=== PATIENT | female | born 1975 | race Caucasian/White ===

== ENCOUNTER 2021-06-29 11:32 | Inpatient (IN) | payer BC ==
[2021-06-29 15:10] LABS: #Basophils 0.1 10x3/uL (0.0-0.2); #Eosinphils 0.1 10x3/uL (0.0-0.5); #Monocytes 0.5 10x3/uL (0.0-1.1); #Neutrophils 4.6 10x3/uL (1.5-8.4); %Basophils 0.7 % (0.0-2.0); %Eosinophils 1.6 % (0.0-6.0); %Lymphocytes 29.6 % (18.0-47.0); %Monocytes 6.4 % (0.0-10.0); %Neutrophils 61.4 % (40.0-75.0); Hemoglobin 14.5 g/dL (12.0-15.5); Mean Corpuscular HGB CONC 35.2 g/dL (32.0-36.0); Mean Corpuscular Hemoglobin 31.4 pg (27.0-33.0); Mean Corpuscular Volume 89.2 fl (81.6-98.3); Mean Platelet Volume 9.5 fl (7.4-10.4); Platelet Count 364 10x3/uL (150-450); Red Blood Cell (RBC) Count 4.62 10x6/uL (3.90-5.03); White Blood Cell (WBC) Count 7.5 10x3/uL (3.5-10.5)
[2021-06-29 15:25] LABS: ALT (SGPT) 68 U/L (8-55); AST (SGOT) 49 U/L (5-34); Albumin 4.9 g/dL (3.5-5.0); Alkaline Phosphatase 47 U/L (40-110); Anion Gap 17 mmol/L (10-20); BUN (Urea Nitrogen) 16 mg/dL (7.0-18.7); Bilirubin, Total 0.9 mg/dL (0.2-1.2); Calc. Creatinine Clearance 0 mL/min (70-130); Calcium 10.6 mg/dL (7.8-10.44); Carbon Dioxide 24 mmol/L (22-29); Chloride 102 mmol/L (98-107); Globulin 3.6 g/dL (2.4-3.5); Glucose 90 mg/dL (70-105); Potassium 3.3 mmol/L (3.5-5.1); Protein, Total 8.5 g/dL (6.0-8.3); Sodium 140 mmol/L (136-145)
[2021-06-29] MEDS ORDERED: Acetaminophen 325 MG TAB PO PRN (20:33)
[2021-06-29] MEDS ORDERED: Zolpidem Tartrate 5 MG TAB PO PRN (20:33)
[2021-06-29] MEDS ORDERED: Calcium Carbonate 500 MG ChewTAB PO PRN (20:33)
[2021-06-29] MEDS ORDERED: HYDROcodone/Acetaminophen 5/325 mg Tablet PO PRN ×2 (20:33)
[2021-06-29] MEDS ORDERED: Senokot S 8.6-50 MG TAB PO PRN (20:33)
[2021-06-29] MEDS ORDERED: Guaifenesin DM 100-10/5 ML UDCUP PO PRN (20:33)
[2021-06-29] MEDS ORDERED: Ondansetron PF 4 MG/2 ML Vial IVP PRN (20:33)
[2021-06-29] MEDS ORDERED: Sodium Chloride 0.9% 500 ML IV SCH (20:45)
[2021-06-29] MEDS ORDERED: methylPREDNISolone Sod Succ/PF 125 MG/2 ML VIAL IVP SCH (20:45)
[2021-06-29] MEDS ORDERED: methylPREDNISolone Sod Succ 1 GM in Sodium Chloride 0.9% 100 ML IVPB SCH (21:15)
[2021-06-29] MEDS ORDERED: Potassium Chloride 20 MEQ TAB PO SCH (21:30)
[2021-06-29] MEDS ORDERED: Lorazepam 1 MG TAB PO SCH (22:00)
[2021-06-29] MEDS ORDERED: Lorazepam 1 MG TAB ONE (22:50)
[2021-06-30 01:20] VITALS: BMI 29.5
[2021-06-30 04:18] LABS: SARS-CoV-2 NAA Rapid Test Not Detected (NotDetected)
[2021-06-30] MEDS ORDERED: Potassium Chloride 20 MEQ TAB PO SCH (04:30)
[2021-06-30 04:31] LABS: ALT (SGPT) 61 U/L (8-55); AST (SGOT) 40 U/L (5-34); Albumin 4.4 g/dL (3.5-5.0); Alkaline Phosphatase 43 U/L (40-110); Anion Gap 17 mmol/L (10-20); BUN (Urea Nitrogen) 14 mg/dL (7.0-18.7); Calc. Creatinine Clearance 119 mL/min (70-130); Calcium 9.8 mg/dL (7.8-10.44); Carbon Dioxide 22 mmol/L (22-29); Chloride 102 mmol/L (98-107); Globulin 3.3 g/dL (2.4-3.5); Glucose 183 mg/dL (70-105); Hemoglobin 13.2 g/dL (12.0-15.5); Mean Corpuscular HGB CONC 35.8 g/dL (32.0-36.0); Mean Corpuscular Hemoglobin 31.1 pg (27.0-33.0); Mean Corpuscular Volume 86.8 fl (81.6-98.3); Mean Platelet Volume 9.4 fl (7.4-10.4); Platelet Count 331 10x3/uL (150-450); Potassium 3.5 mmol/L (3.5-5.1); Protein, Total 7.7 g/dL (6.0-8.3); RBC Distribution Width 11.9 % (11.5-14.5); Red Blood Cell (RBC) Count 4.25 10x6/uL (3.90-5.03); Sodium 137 mmol/L (136-145); White Blood Cell (WBC) Count 5.8 10x3/uL (3.5-10.5)
[2021-06-30] MEDS ORDERED: Ibuprofen 200 MG TAB PO SCH (05:30)
[2021-06-30 06:49] LABS: MDiff Complete? YES
[2021-06-30 06:51] LABS: Band 5 % (5-11); Lymphocytes 7 % (21-51); Monocytes 1 % (0-10); Neutrophil 85 % (42-75); Reactive Lymphocytes 1 % (0-10)
[2021-06-30] MEDS ORDERED: Hydrochlorothiazide 25 MG TAB PO SCH (09:00)
[2021-06-30] MEDS ORDERED: Thyroid 60 MG TAB PO SCH (09:00)
[2021-06-30] MEDS ORDERED: Valsartan 80 MG TAB PO SCH (09:00)
[2021-06-30 09:16] LABS: Bilirubin Neg (Negative); Blood, Urine Negative (Negative); Clarity Clear (Clear); Glucose, Urine (Dipstick) Normal (Negative); Ketone, Urine Negative (Negative); Leukocyte Negative (Negative); Nitrite Negative (Negative); Protein, Urine (Dipstick) Negative (Neg-Trace); Urobilinogen Normal mg/dL (Less than 2)
[2021-06-30 09:50] LABS: Bacteria/HPF 1+ HPF (None Seen); RBC/HPF 0-3 HPF (0-3); Squamous Epithelial 0-3 HPF (0-3); WBC/HPF 0-3 HPF (0-3)
[2021-06-30] MEDS: Enoxaparin Sodium 40 MG/0.4 ML SYRINGE SC SCH (10:24)
[2021-06-30 14:34] LABS: Pregnancy Test - Urine (BHCG) Negative (Negative); Pregu Control Background? CLEAR/WHITE (CLR/WHITE); Pregu Control Bar Appear? YES (CONTROL BAR)
[2021-06-30] MEDS ORDERED: Lidocaine 1% PF 5 ML VIAL ONE (14:47)
[2021-06-30] MEDS ORDERED: Sodium Bicarbonate 2.5 MEQ/5 ML VIAL ONE (14:48)
[2021-06-30 18:25] LABS: CSF Source CSF; Clarity Hazy (Clear); Tube # 3
[2021-06-30 18:26] LABS: CSF RBC Count - Manual 1525 /cu.mm (None Seen); CSF WBC/NonHematics Count-Man 1 /cu.mm (0-5)
[2021-06-30] MEDS: traMADol HCl 50 MG TAB PO PRN (18:40)
[2021-06-30] MEDS ORDERED: methylPREDNISolone Sod Succ 1 GM in Sodium Chloride 0.9% 100 ML IVPB SCH (21:00)
[2021-06-30] MEDS ORDERED: Lorazepam 1 MG TAB PO PRN (22:14)
[2021-06-30] MEDS ORDERED: Ibuprofen 400 MG TAB PO SCH (22:15)
[2021-06-30] MEDS: ADMIXTURE FEE IVPB SCH (23:02)
[2021-06-30] MEDS: OCTAGAM IVPB SCH (23:02)
[2021-07-01] MEDS: traMADol HCl 50 MG TAB PO PRN ×4 (00:33→18:46)
[2021-07-01 01:44] LABS: CSF, Glucose 106 mg/dl (40-70); CSF, Protein 36 mg/dL (15-40)
[2021-07-01] MEDS: Thyroid 60 MG TAB PO SCH (05:57)
[2021-07-01] MEDS ORDERED: Thyroid 60 MG TAB PO SCH (06:00)
[2021-07-01] MEDS: Enoxaparin Sodium 40 MG/0.4 ML SYRINGE SC SCH (09:57)
[2021-07-01] MEDS: Hydrochlorothiazide 25 MG TAB PO SCH (09:58)
[2021-07-01] MEDS: Valsartan 80 MG TAB PO SCH (09:58)
[2021-07-01] MEDS: Ibuprofen 600 MG TAB PO PRN (18:46)
[2021-07-01] MEDS: OCTAGAM IVPB SCH (21:24)
[2021-07-01] MEDS: ADMIXTURE FEE IVPB SCH (21:24)
[2021-07-02] MEDS: Thyroid 60 MG TAB PO SCH (04:49)
[2021-07-02] MEDS: traMADol HCl 50 MG TAB PO PRN ×3 (04:55→17:31)
[2021-07-02] MEDS: Ibuprofen 600 MG TAB PO PRN ×4 (04:59→21:07)
[2021-07-02] MEDS: Valsartan 80 MG TAB PO SCH (11:23)
[2021-07-02] MEDS: Hydrochlorothiazide 25 MG TAB PO SCH (11:23)
[2021-07-02] MEDS: Enoxaparin Sodium 40 MG/0.4 ML SYRINGE SC SCH ×2 (11:28→11:34)
[2021-07-02 16:24] VITALS: BP 141/95; TEMP 97.1
[2021-07-02] MEDS ORDERED: traMADol HCl 50 MG TAB PO SCH (20:45)
[2021-07-06 17:14] LABS: Myelin Basic Protein, CSF 1.9 ng/mL (0.0-3.7)
[2021-07-08 14:39] LABS: VDRL, CSF Non Reactive (Non Rea:<1:1)
== END 2021-07-02 21:10 | disposition home or self-care (01) | DRG 99 ==
LOC: CSHERS 11:32 → CSHTELE 20:33 → OBSVTOIN 20:34 → CSHTELE 06-30 01:08 → UNDOADMOB 06-30 01:08 → UNDODISIN 07-02 19:45
PROVIDERS: ADMIT Student in an Organized Health Care Education/Training Program; ATTEND Hospitalist
PROC: 009U3ZX Drainage of Spinal Canal, Percutaneous Approach, Diagnostic (ICD-10-PCS; principal; 2021-06-30)
PROC: B01B1ZZ Fluoroscopy of Spinal Cord using Low Osmolar Contrast (ICD-10-PCS; 2021-06-30)
DX: G04.89 Other myelitis (principal); E03.9 Hypothyroidism, unspecified; Z20.822 Contact with and (suspected) exposure to COVID-19; E87.6 Hypokalemia; I10 Essential (primary) hypertension
CPT/HCPCS: 36415; 62270; 70450; 72157; 80053; 81001; 81025; 82042; 82607; 82746; 82945; 83873; 84157; 84443; 85025; 85379; 86140; 86592; 86612; 86635; 86698; 87070; 87205; 89051; 93005; 93010; 94150; 96374; J1568; J1650; J2930; J3490; U0002

== ENCOUNTER 2022-12-21 15:06 | Outpatient (CLI) | payer BC | END 2022-12-21 15:07 | disposition home or self-care (01) | LOC: CSHMAMMO 15:06 | PROVIDERS: ATTEND Family Medicine | DX: Z12.31 Encounter for screening mammogram for malignant neoplasm of breast (principal); Z80.3 Family history of malignant neoplasm of breast; Z98.82 Breast implant status | CPT/HCPCS: 77063; 77067 ==